=== PATIENT | male | born 2000 | race Caucasian/White ===

== ENCOUNTER 2022-12-29 05:06 | Emergency (ER) | payer SELFPAY ==
[~2022-12-29] VITALS: Ht 177.8 cm; Wt 90.9 kg
[2022-12-29] MEDS ORDERED: HYDROCODONE/ACETAMINOPHEN 5-325 MG TABLET PO ONE (05:30)
[2022-12-29] MEDS ORDERED: ONDANSETRON HCL 4 MG/2 ML VIAL IM ONE (05:45)
[2022-12-29] MEDS ORDERED: DOXYCYCLINE HYCLATE 100 MG TABLET PO ONE (05:45)
[2022-12-29] MEDS ORDERED: HYDROmorphone HCL 2 MG/ML SYRINGE IM ONE (05:45)
[2022-12-29] MEDS ORDERED: CEPHALEXIN MONOHYDRATE 500 MG CAPSULE PO ONE (05:45)
[2022-12-29] MEDS ORDERED: LIDOCAINE 1% 10 ML VIAL SQ ONE (05:45)
[2022-12-29] MEDS ORDERED: BACITRACIN 0.9 GM PACKET OINTMENT TP ONE (06:24)
[2022-12-29] MEDS ORDERED: DOXY-354 PO (06:42)
[2022-12-29] MEDS ORDERED: CEPH-558 PO (06:42)
[2022-12-29 06:59] VITALS: BP 113/66
== END 2022-12-29 07:09 | disposition home or self-care (01) ==
LOC: EMS 05:09
DX: L05.91 Pilonidal cyst without abscess (principal); L03.317 Cellulitis of buttock; Z88.6 Allergy status to analgesic agent
CPT/HCPCS: 99283; 10060; 96372; J1170; J3490; J2405